=== PATIENT | female | born 1950 | race Caucasian/White ===

== ENCOUNTER 2018-05-12 02:05 | Observation (INO) ==
[2018-05-12] MEDS ORDERED: ONDANSETRON 4 MG/2 ML VIAL IV STA (02:47)
[2018-05-12] MEDS ORDERED: ASPIRIN 325 MG TABLET PO STA (02:47)
[2018-05-12] MEDS ORDERED: PANTOPRAZOLE 40 MG VIAL IV STA (02:48)
[2018-05-12 03:02] LABS: Basophils % 0.6 % (0.0-0.8); Eosinophils # 0.2 10*3/uL (0.0-0.87); Eosinophils % 2.8 % (0.00-10.9); Hematocrit 39.1 VOL% (35.7-47.0); Hemoglobin 12.4 GM/DL (12.0-16.0); Immature Granulocytes % 0.3 %; Immature Granulocytes Absolute 0.02 #; Lymphocytes # 1.7 10*3/uL (1.4-4.0); Lymphocytes % 26.5 % (21.3-54.2); Mean Corpuscular HGB Conc 31.7 GM/DL (32-36); Mean Corpuscular Hemoglobin 27 PG (27-34); Mean Corpuscular Volume 84.8 FL (87-102); Monocytes # 0.3 10*3/uL (0.11-0.8); Monocytes % 5.3 % (1.7-12.7); Neutrophils # 4.1 10*3/uL (1.4-7.4); Neutrophils % 64.5 % (38.7-73.9); Platelet Count 238 T/CUMM (130-400); Red Blood Count 4.61 MC/CUMM (3.8-5.5); Red Cell Distribution Width 15.6 % (9.3-17.3); White Blood Count 6.4 T/CUMM (4-12)
[2018-05-12 03:17] LABS: Albumin 3.5 G/DL (3.4-5.0); Bilirubin,Total 0.4 MG/DL (0.2-1.0); Calcium 9.8 MG/DL (8.5-10.1); Osmolality,Calculated 275.7 MOS/KG (273-304); Potassium 3.7 MMOL/L (3.5-5.1); Total Protein 7.7 G/DL (6.4-8.3)
[2018-05-12] MEDS ORDERED: ONDANSETRON 4 MG/2 ML VIAL IV PRN (03:56)
[2018-05-12] MEDS ORDERED: KETOROLAC 30 MG/1 ML VIAL IV STA (04:39)
[2018-05-12] MEDS: ENOXAPARIN 40 MG/0.4 ML SYRINGE SUBCUT SCH (10:15)
[2018-05-12] MEDS: PANTOPRAZOLE 40 MG TABLET PO SCH (10:23)
[2018-05-12 10:30] LABS: Risk Ratio 2.98; VLDL CHOLESTEROL 17.6 MG/DL
[2018-05-12] MEDS: ACETAMINOPHEN 325 MG/10.15 ML UDCUP PO PRN (18:47)
[2018-05-12] MEDS ORDERED: PRAVASTATIN 40 MG TABLET PO SCH (21:00)
[2018-05-12] MEDS ORDERED: METOPROLOL SUCCINATE XL 25 MG TABLET PO SCH (21:00)
[2018-05-12] MEDS ORDERED: ASPIRIN EC 81 MG TABLET PO SCH (21:00)
[2018-05-12] MEDS ORDERED: PRAVASTATIN 20 MG TABLET PO SCH (21:00)
[2018-05-13 05:25] LABS: Basophils % 0.7 % (0.0-0.8); Eosinophils # 0.2 10*3/uL (0.0-0.87); Eosinophils % 3.4 % (0.00-10.9); Hematocrit 34.7 VOL% (35.7-47.0); Hemoglobin 11.1 GM/DL (12.0-16.0); Immature Granulocytes % 0.3 %; Immature Granulocytes Absolute 0.02 #; Lymphocytes % 33.2 % (21.3-54.2); Mean Corpuscular Hemoglobin 27 PG (27-34); Mean Corpuscular Volume 84.6 FL (87-102); Mean Platelet Volume 9.9 FL (9.6-12.0); Monocytes # 0.5 10*3/uL (0.11-0.8); Neutrophils # 3.4 10*3/uL (1.4-7.4); Neutrophils % 54.4 % (38.7-73.9); Platelet Count 205 T/CUMM (130-400); Red Cell Distribution Width 15.6 % (9.3-17.3); White Blood Count 6.2 T/CUMM (4-12)
[2018-05-13 05:46] LABS: Calcium 9.1 MG/DL (8.5-10.1); Osmolality,Calculated 274.7 MOS/KG (273-304); Potassium 4.4 MMOL/L (3.5-5.1)
[2018-05-13] MEDS ORDERED: LEVOTHYROXINE 75 MCG TABLET PO SCH (07:00)
[2018-05-13] MEDS ORDERED: LEVOTHYROXINE 88 MCG TABLET PO SCH (07:00)
[2018-05-13] MEDS: ACETAMINOPHEN 325 MG/10.15 ML UDCUP PO PRN (09:18)
[2018-05-13] MEDS: ENOXAPARIN 40 MG/0.4 ML SYRINGE SUBCUT SCH (09:21)
[2018-05-13] MEDS: PANTOPRAZOLE 40 MG TABLET PO SCH (09:22)
[2018-05-13 11:33] VITALS: BP 114/75
== END 2018-05-13 11:38 | disposition home or self-care (01) ==
LOC: N.ED 02:05 → N.TELEN 02:05
PROVIDERS: ADMIT Internal Medicine; ATTEND Internal Medicine